=== PATIENT | female | born 1950 | race American Indian/Alaskan Native ===

== ENCOUNTER 2017-11-24 08:39 | Outpatient (CLI) | payer MEDICARE ==
--- NOTE | 2017-11-24 09:08 | XRay Report ---
LEFT KNEE RADIOGRAPHS INDICATION: Knee pain. COMPARISON: None similar. FINDINGS: Standing AP, oblique and lateral left knee radiographs as also a tunnel view demonstrate moderate to severe medial compartment narrowing. Faint horizontal densities project within medial and lateral joint spaces. Mild diffuse degenerative spurring. No large suprapatellar effusion. CONCLUSION: Tricompartmental left knee osteoarthrosis with greatest involvement of the medial compartment, as detailed above in this patient with CPPD. Please correlate. Thank you for the opportunity to participate in this patient's care.
== END 2017-11-24 08:40 | disposition home or self-care (01) ==
LOC: SPVIMAG 08:39
PROVIDERS: ATTEND Orthopaedic Surgery
DX: M17.12 Unilateral primary osteoarthritis, left knee (principal)